=== PATIENT | female | born 1990 | race Caucasian/White ===

== ENCOUNTER 2018-12-03 13:38 | Emergency (ER) | payer BC ==
[~2018-12-03] VITALS: Ht 177.8 cm; Wt 69.4 kg
[~2018-12-03 13:38] MED LIST: ACCUNEB SO1.25 MG/1; ADDERALL XR 2020 MG PO; ADDERALL XR 3030 MG; AZITHROMYCIN 2250 MG; BACTRIM 400-801 EACH PO; BACTRIM DS TAB1 EACH PO; CEFDINIR300 MG PO; CELEXA 10 MG TA10 MG PO; CELEXA10 MG PO; CEPHALEXIN 500500 M1; CEPHALEXIN 500500 M1 PO; CLEOCIN HCL150 MG PO; FLEXERIL PO; HYDROCODON-ACE1 EAC7 PO; HYDROCODONE-AP1 EAC6 PO; IBUPROFEN 800800 M1 PO; KEFLEX500 MG PO; Magic Mouthwash PO; NORCO 5-325 TA1 EACH PO; PERCOCET 5-3251 EACH PO; PREDNISONE 10 M10 M1 PO; PREDNISONE 20 M20 M1 PO; PROAIR HFA8.5 GM; PROAIR HFA8.5 GM IH; PROMETHAZINE-C120 ML PO; ROBAXIN 750 MG750 M1 PO; SERTRALINE HCL50 MG PO; SINGULAIR 10 MG10 M1 PO; TRINATE TABLET1 TAB PO; XANAX 0.5 MG0.5 M1; XANAX 0.5 MG0.5 MG PO; XOPENEX1.25 MG/3 IH; ZOFRAN ODT4 MG PO
[2018-12-03 13:43] VITALS: BP 159/107
[2018-12-03] MEDS ORDERED: KLONOPIN1 MG PO (13:48)
[2018-12-03] MEDS ORDERED: XANAX 0.5 MG0.5 MG PO (13:48)
[2018-12-03] MEDS ORDERED: NORCO 5-325 TA1 EACH PO (13:49)
[2018-12-03] MEDS ORDERED: ADDERALL 15 MG15 MG PO (13:50)
[2018-12-03] MEDS ORDERED: LAMICTAL200 MG PO (13:50)
[2018-12-03] MEDS ORDERED: PROAIR HFA8.5 GM INH (13:51)
== END 2018-12-03 14:29 ==
LOC: M.ERS 13:38
DX: F41.9 Anxiety disorder, unspecified (principal); Z76.0 Encounter for issue of repeat prescription; J45.909 Unspecified asthma, uncomplicated; G43.909 Migraine, unspecified, not intractable, without status migrainosus; F31.9 Bipolar disorder, unspecified; M19.90 Unspecified osteoarthritis, unspecified site; Z87.891 Personal history of nicotine dependence; Z88.1 Allergy status to other antibiotic agents; Z88.8 Allergy status to other drugs, medicaments and biological substances; Z88.0 Allergy status to penicillin; Z98.890 Other specified postprocedural states; Z87.442 Personal history of urinary calculi

== ENCOUNTER 2018-12-03 16:36 | Emergency (ER) | payer BC ==
[~2018-12-03] VITALS: Ht 177.8 cm; Wt 59.0 kg
[~2018-12-03 16:36] MED LIST changes: +ADDERALL 15 MG15 MG PO; +KLONOPIN1 MG PO; +LAMICTAL200 MG PO; +PROAIR HFA8.5 GM INH
[2018-12-03 17:13] LABS: ICTOTEST (BILI CONFIRMATORY) Negative (Negative); URINE BILIRUBIN 1+ (Negative); URINE BLOOD 2+ (Negative); URINE CLARITY CLEAR; URINE COLOR YELLOW; URINE GLUCOSE-RANDOM NEGATIVE (Negative); URINE KETONES NEGATIVE (Negative); URINE LEUKOCYTES-REFLEX 2+ (Negative); URINE NITRITE-REFLEX NEGATIVE (Negative); URINE PROTEIN TRACE (Negative); URINE SPECIFIC GRAVITY >= 1.030 (1.005-1.030); URINE UROBILINOGEN 0.2 E.U./dl (0.2-1.0)
[2018-12-03 17:14] LABS: SQUAMOUS >10 Many /LPF (0-3); URINE RBC 3-10 Few /HPF (0-2); URINE WBC-REFLEX >25 Many /HPF (0-5)
[2018-12-03 17:15] LABS: AMORPHOUS URATES Few /LPF (None Seen); BACTERIA-REFLEX >30 Many /HPF (None Seen); CASTS None Seen /LPF (None Seen)
[2018-12-03 17:20] LABS: AMP/METHAMP POSITIVE (Negative); BARBITURATES Negative (Negative); BENZODIAZEPINES POSITIVE (Negative); COCAINE POSITIVE (Negative); METHADONE Negative (Negative); OPIATES POSITIVE (Negative); PCP Negative (Negative); THC POSITIVE (Negative)
[2018-12-03 17:24] LABS: ABSOLUTE BASOPHILS 0.2 thou/uL (0.0-0.2); ABSOLUTE EOSINOPHILS 0.1 thou/uL (0.0-0.7); ABSOLUTE LYMPHOCYTES 2.7 thou/uL (0.8-5.3); ABSOLUTE MONOCYTES 0.7 thou/uL (0.0-1.2); ABSOLUTE NEUTROPHILS 8.8 thou/uL (1.6-8.1); BASOPHILS 1.4 %; EOSINOPHILS 0.9 %; HEMATOCRIT 48.8 % (37.0-47.0); HEMOGLOBIN 16.7 gm/dL (12.0-15.0); LYMPHOCYTES 21.7 %; MCH 32.5 pg (26.0-34.0); MCHC 34.3 g/dL (28.0-37.0); MCV 94.6 fL (80.0-100.0); MONOCYTES 5.8 %; MPV 10.8 fl. (7.2-11.1); NUCLEATED RBCS 0 /100WBC; PLATELET COUNT* 214 thou/uL (150-400); POLYS 70.2 %; RBC 5.15 mil/uL (4.20-5.00); RDW-CV 13.3 % (10.5-14.5); WBC 12.5 thou/uL (4.0-11.0)
[2018-12-03 17:32] LABS: CALCIUM 9.6 mg/dL (8.5-10.1); CREATININE 0.8 mg/dL (0.6-1.3); POTASSIUM 3.3 mmol/L (3.5-5.1)
[2018-12-03 17:37] LABS: ALBUMIN 4.2 g/dL (3.4-5.0); TOTAL PROTEIN 7.9 g/dL (6.4-8.2)
[2018-12-03 17:47] LABS: SALICYLATE 7.4 mg/dL (2.8-20.0)
[2018-12-03 17:48] LABS: ACETAMINOPHEN < 2 ug/mL (10-30); ALCOHOL < 10 mg/dL (<10)
[2018-12-04 14:26] VITALS: BP 107/71
== END 2018-12-04 14:26 ==
LOC: M.ERS 16:36
PROVIDERS: Emergency Medicine
DX: R41.82 Altered mental status, unspecified (principal); J45.909 Unspecified asthma, uncomplicated; F31.9 Bipolar disorder, unspecified; M19.90 Unspecified osteoarthritis, unspecified site; G43.909 Migraine, unspecified, not intractable, without status migrainosus; Z98.890 Other specified postprocedural states; Z90.89 Acquired absence of other organs; Z87.442 Personal history of urinary calculi; Z87.891 Personal history of nicotine dependence; Z88.1 Allergy status to other antibiotic agents; Z88.8 Allergy status to other drugs, medicaments and biological substances; Z88.0 Allergy status to penicillin

== ENCOUNTER 2021-08-31 21:52 | Emergency (ER) | payer BC ==
[~2021-08-31] VITALS: Ht 177.8 cm; Wt 112.0 kg
[2021-08-31 22:18] VITALS: BP 131/83
[2021-09-01] MEDS ORDERED: LEXAPRO 10 MG T10 M2 PO (01:22)
[2021-09-01] MEDS ORDERED: PROAIR HFA8.5 GM INH (01:22)
[2021-09-01] MEDS ORDERED: NEURONTIN100 MG PO (01:22)
== END 2021-08-31 22:20 | disposition home or self-care (01) ==
LOC: M.ERS 21:52
DX: F41.9 Anxiety disorder, unspecified (principal); S90.412A Abrasion, left great toe, initial encounter; J45.909 Unspecified asthma, uncomplicated; F17.210 Nicotine dependence, cigarettes, uncomplicated; G43.909 Migraine, unspecified, not intractable, without status migrainosus; Z98.890 Other specified postprocedural states; Z87.442 Personal history of urinary calculi; Z88.0 Allergy status to penicillin; Z88.1 Allergy status to other antibiotic agents; X58.XXXA Exposure to other specified factors, initial encounter; Y93.89 Activity, other specified; Y92.89 Other specified places as the place of occurrence of the external cause; Y99.8 Other external cause status

== ENCOUNTER 2021-09-01 01:15 | Emergency (ER) | payer BC ==
[~2021-09-01] VITALS: Ht 177.8 cm; Wt 111.1 kg
[2021-09-01] MEDS ORDERED: NEURONTIN100 MG PO (01:22)
[2021-09-01] MEDS ORDERED: PROAIR HFA8.5 GM INH (01:22)
[2021-09-01] MEDS ORDERED: LEXAPRO 10 MG T10 M2 PO (01:22)
[2021-09-01 01:52] LABS: ABSOLUTE BASOPHILS 0.2 thou/uL (0.0-0.2); ABSOLUTE EOSINOPHILS 0.1 thou/uL (0.0-0.7); ABSOLUTE LYMPHOCYTES 3.7 thou/uL (0.8-5.3); ABSOLUTE MONOCYTES 0.4 thou/uL (0.0-1.2); ABSOLUTE NEUTROPHILS 2.8 thou/uL (1.6-8.1); HEMATOCRIT 39.6 % (37.0-47.0); HEMOGLOBIN 13.1 gm/dL (12.0-15.0); LYMPHOCYTES 51.2 %; MCH 29.1 pg (26.0-34.0); MCV 88.1 fL (80.0-100.0); MONOCYTES 5.1 %; MPV 8.8 fl. (7.2-11.1); NUCLEATED RBCS 0 /100WBC; PLATELET COUNT* 262 thou/uL (150-400); POLYS 38.7 %; RDW-CV 20.8 % (10.5-14.5); WBC 7.2 thou/uL (4.0-11.0)
[2021-09-01 02:00] LABS: CALCIUM 8.2 mg/dL (8.5-10.1); CREATININE 0.7 mg/dL (0.6-1.3); POTASSIUM 3.1 mmol/L (3.5-5.1)
[2021-09-01 02:00] LABS: URINE BILIRUBIN NEGATIVE (Negative); URINE BLOOD 3+ (Negative); URINE CLARITY CLEAR; URINE COLOR YELLOW; URINE GLUCOSE-RANDOM NEGATIVE (Negative); URINE KETONES TRACE (Negative); URINE LEUKOCYTES-REFLEX NEGATIVE (Negative); URINE NITRITE-REFLEX NEGATIVE (Negative); URINE PROTEIN NEGATIVE (Negative); URINE SPECIFIC GRAVITY 1.025 (1.005-1.030); URINE UROBILINOGEN 0.2 E.U./dl (0.2-1.0)
[2021-09-01 02:04] LABS: ALBUMIN 3.3 g/dL (3.4-5.0); TOTAL BILIRUBIN 0.2 mg/dL (<0.1-1.0); TOTAL PROTEIN 7.2 g/dL (6.4-8.2)
[2021-09-01 02:04] LABS: AMP/METHAMP Negative (Negative); BARBITURATES Negative (Negative); BENZODIAZEPINES Negative (Negative); COCAINE Negative (Negative); METHADONE Negative (Negative); OPIATES POSITIVE (Negative); PCP Negative (Negative); THC POSITIVE (Negative)
[2021-09-01 02:11] LABS: ALCOHOL 197 mg/dL (<10); SALICYLATE 3.6 mg/dL (2.8-20.0)
[2021-09-01 02:15] LABS: ACETAMINOPHEN < 2 ug/mL (10-30)
[2021-09-01 02:58] LABS: CASTS None Seen /LPF (None Seen); SQUAMOUS >10 Many /LPF (0-3); URINE WBC-REFLEX 0-5 Rare /HPF (0-5)
[2021-09-01 02:59] LABS: BACTERIA-REFLEX 1-9 Few /HPF (None Seen); CALCIUM OXALATE 0-3 Few /LPF (None Seen); URINE RBC 0-2 Rare /HPF (0-2)
[2021-09-01 03:34] VITALS: BP 132/79
[2021-09-01 05:15] LABS: ANISOCYTOSIS 2+; PLATELET ESTIMATE ADEQUATE
== END 2021-09-01 03:33 | disposition home or self-care (01) ==
LOC: M.ERS 01:15
PROVIDERS: Emergency Medicine
DX: R45.851 Suicidal ideations (principal); Z20.822 Contact with and (suspected) exposure to COVID-19; F41.9 Anxiety disorder, unspecified; G43.909 Migraine, unspecified, not intractable, without status migrainosus; J45.909 Unspecified asthma, uncomplicated; Z87.891 Personal history of nicotine dependence; Z88.1 Allergy status to other antibiotic agents; Z88.0 Allergy status to penicillin; Z79.899 Other long term (current) drug therapy; Z87.442 Personal history of urinary calculi

== ENCOUNTER 2021-09-24 01:49 | Emergency (ER) | payer BC ==
[~2021-09-24] VITALS: Ht 170.2 cm; Wt 122.5 kg
[~2021-09-24 01:49] MED LIST changes: +ALPRAZOLAM XR3 MG PO; +LEXAPRO 10 MG T10 M2 PO; +NEURONTIN100 MG PO; +WELLBUTRIN 75 M75 M1 PO; +ZOLOFT50 M1 PO
[2021-09-24 02:09] LABS: URINE BILIRUBIN NEGATIVE (Negative); URINE BLOOD NEGATIVE (Negative); URINE CLARITY CLEAR; URINE COLOR YELLOW; URINE GLUCOSE-RANDOM NEGATIVE (Negative); URINE KETONES NEGATIVE (Negative); URINE LEUKOCYTES-REFLEX NEGATIVE (Negative); URINE NITRITE-REFLEX NEGATIVE (Negative); URINE PROTEIN NEGATIVE (Negative); URINE SPECIFIC GRAVITY >= 1.030 (1.005-1.030); URINE UROBILINOGEN 0.2 E.U./dl (0.2-1.0)
[2021-09-24 02:17] LABS: AMP/METHAMP POSITIVE (Negative); BARBITURATES Negative (Negative); BENZODIAZEPINES POSITIVE (Negative); COCAINE Negative (Negative); METHADONE Negative (Negative); OPIATES POSITIVE (Negative); PCP Negative (Negative); THC POSITIVE (Negative)
[2021-09-24 02:32] LABS: HEMATOCRIT 37.2 % (37.0-47.0); HEMOGLOBIN 12.4 gm/dL (12.0-15.0); MCH 29.7 pg (26.0-34.0); MCHC 33.2 g/dL (28.0-37.0); MCV 89.4 fL (80.0-100.0); MPV 9.3 fl. (7.2-11.1); RBC 4.16 mil/uL (4.20-5.00); RDW-CV 21.7 % (10.5-14.5); WBC 7.2 thou/uL (4.0-11.0)
[2021-09-24 02:45] LABS: CALCIUM 8.6 mg/dL (8.5-10.1); CREATININE 0.7 mg/dL (0.6-1.3)
[2021-09-24 02:50] LABS: ALBUMIN 3.3 g/dL (3.4-5.0); TOTAL BILIRUBIN 0.8 mg/dL (<0.1-1.0); TOTAL PROTEIN 7.1 g/dL (6.4-8.2)
[2021-09-24 03:21] VITALS: BP 171/96
== END 2021-09-24 03:21 | disposition home or self-care (01) ==
LOC: M.ERS 01:49
PROVIDERS: Personal Emergency Response Attendant
DX: F19.20 Other psychoactive substance dependence, uncomplicated (principal); Z98.51 Tubal ligation status; Z79.899 Other long term (current) drug therapy; Z88.0 Allergy status to penicillin; Z02.4 Encounter for examination for driving license